=== PATIENT | male | born 1940 | race Caucasian/White ===

== ENCOUNTER 2023-09-10 14:45 | Emergency (ER) | payer OTHER ==
[~2023-09-10] VITALS: Ht 182.9 cm; Wt 74.4 kg
[~2023-09-10 14:45] MED LIST: LACT PO; PANT40TA PO
[2023-09-10] MEDS ORDERED: OCTYL 2-CYANOACRYLATE 1 EACH TP ONE (20:15)
[2023-09-10] MEDS ORDERED: AMOX1TAB16 PO (20:28)
[2023-09-10] MEDS ORDERED: AMOX/CLAV 875/125MG TAB PO ONE (20:30)
[2023-09-10] MEDS ORDERED: ACETAMINOPHEN 500 MG TABLET PO ONE (20:30)
[2023-09-10 20:46] VITALS: BP 108/68; PULSE 70; RESP 18; O2SAT 99
== END 2023-09-10 20:52 | disposition home or self-care (01) ==
LOC: EDH 14:45
DX: S61.452A Open bite of left hand, initial encounter (principal); Z79.899 Other long term (current) drug therapy; W54.0XXA Bitten by dog, initial encounter; Y93.89 Activity, other specified; Y92.89 Other specified places as the place of occurrence of the external cause; Y99.8 Other external cause status
CPT/HCPCS: 12002; 73120